=== PATIENT | male | born 1995 | race American Indian/Alaskan Native ===

== ENCOUNTER 2019-12-23 16:32 | Emergency (ER) | payer SELFPAY ==
[2019-12-23] MEDS ORDERED: ETOMIDATE 20 MG/10 ML INJ IV ONE ×2 (16:48→17:10)
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
[2019-12-23] MEDS ORDERED: ONDANSETRON 4 MG/2 ML INJ IV ONE (17:25)
[2019-12-23] MEDS ORDERED: MORPHINE 4 MG/1 ML INJ IV ONE (17:25)
[2019-12-23] MEDS ORDERED: KETOROLAC 30 MG/1 ML INJ IV ONE (17:25)
--- NOTE | 2019-12-23 17:28 | XRay Report ---
RIGHT SHOULDER 2 VIEW(S) 4:54 PM INDICATION / CLINICAL INFORMATION: right shoulder pain COMPARISON: None available. FINDINGS: BONES / JOINT(S): Anterior dislocation of the right humeral head relative to the glenoid. No acute fr acture. No significant arthritis. SOFT TISSUES: No significant abnormality. ADDITIONAL FINDINGS: None. IMPRESSION: 1. Anterior shoulder dislocation. Signer Name: Derrick De La Rosa MD Signed: 12/23/2019 5:24 PM Workstation Name: [id number]
--- NOTE | 2019-12-23 17:57 | XRay Report ---
RIGHT SHOULDER 2 VIEW(S) 5:24 PM INDICATION / CLINICAL INFORMATION: post reduction x-ray COMPARISON: 4:54 PM FINDINGS: BONES / JOINT(S): Interval successful reduction of right shoulder anterior dislocation. Mild impactio n deformity in the posterolateral aspect of the humeral head. No displaced fracture. No significant a rthritis. SOFT TISSUES: No significant abnormality. ADDITIONAL FINDINGS: None. Signer Name: Derrick De La Rosa MD Signed: 12/23/2019 5:53 PM Workstation Name: [id number]
[2019-12-25 12:47] VITALS: BP 105/61
== END 2019-12-23 18:54 | disposition home or self-care (01) ==
LOC: ED 16:32
DX: M24.411 Recurrent dislocation, right shoulder (principal); Z87.81 Personal history of (healed) traumatic fracture; Z79.1 Long term (current) use of non-steroidal anti-inflammatories (NSAID)
CPT/HCPCS: 23650; 73030; 96374; 96375; 99284; J1885; J2270; J2405

== ENCOUNTER 2020-02-19 09:06 | Emergency (ER) | payer SELFPAY ==
[2020-02-19] MEDS ORDERED: KETAMINE 500 MG/5 ML VIAL MDV IV ONE (09:43)
[2020-02-19] MEDS ORDERED: propofoL 200 MG/20 ML VIAL IV ONE (09:43)
[2020-02-19] MEDS ORDERED: SODIUM CHLORIDE 0.9% 1000 ML 1,000 ML IV ONE (09:43)
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
--- NOTE | 2020-02-19 09:59 | XRay Report ---
RIGHT SHOULDER 3 VIEW(S) INDICATION / CLINICAL INFORMATION: shoulder dislocation COMPARISON: Right shoulder x-ray 01/06/2020 FINDINGS: BONES / JOINT(S): The humeral head is dislocated anteroinferiorly with respect to the glenoid. Postre duction x-ray recommended. Signer Name: Danny Olmos MD Signed: 02/19/2020 9:55 AM Workstation Name: [id number]
[2020-02-19 10:36] VITALS: BP 132/90
--- NOTE | 2020-02-19 10:53 | XRay Report ---
RIGHT SHOULDER ONE VIEW INDICATION: dislocation reduction. COMPARISON: None. IMPRESSION: The anterior inferior dislocation at the right glenohumeral joint has been reduced and n ow appears anatomic in alignment. No obvious bony abnormality. Signer Name: Albert Mack Jr, MD Signed: 02/19/2020 10:48 AM Workstation Name: [id number]
== END 2020-02-19 11:31 | disposition home or self-care (01) ==
LOC: ED 09:06
DX: S43.084A Other dislocation of right shoulder joint, initial encounter (principal); Z79.1 Long term (current) use of non-steroidal anti-inflammatories (NSAID); X58.XXXA Exposure to other specified factors, initial encounter; Y93.89 Activity, other specified; Y92.89 Other specified places as the place of occurrence of the external cause; Y99.8 Other external cause status
CPT/HCPCS: 23655; 73020; 73030; 99284; J2704; J7030; 96374; 96375

== ENCOUNTER 2020-05-22 19:31 | Emergency (ER) | payer SELFPAY ==
[2020-05-22] MEDS ORDERED: ONDANSETRON 4 MG/2 ML INJ IV ONE (19:54)
[2020-05-22] MEDS ORDERED: ETOMIDATE 20 MG/10 ML INJ IV ONE ×2 (19:54→21:00)
[2020-05-22] MEDS ORDERED: HYDROmorphone 1 MG/1 ML INJ IV ONE (19:54)
[2020-05-22] MEDS ORDERED: KETOROLAC 30 MG/1 ML INJ IV ONE (19:59)
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
--- NOTE | 2020-05-22 20:44 | XRay Report ---
Right shoulder 2 views INDICATION: Right shoulder pain IMPRESSION: Severe anterior-inferior dislocation of the right humeral head from the glenoid. Signer Name: Arnol Rivera MD Signed: 05/22/2020 8:39 PM Workstation Name: [id number]
--- NOTE | 2020-05-22 21:29 | XRay Report ---
RIGHT SHOULDER 1 VIEW(S) INDICATION / CLINICAL INFORMATION: post reduction film COMPARISON: Radiograph from same day. FINDINGS: Single view of the right shoulder demonstrates satisfactory glenohumeral alignment post red uction. No definite fractures identified. Signer Name: Camron Goldman MD Signed: 05/22/2020 9:24 PM Workstation Name: [id number]
[2020-05-22 22:14] VITALS: BP 120/78
== END 2020-05-22 22:00 | disposition home or self-care (01) ==
LOC: ED 19:31
DX: M24.411 Recurrent dislocation, right shoulder (principal); Z79.1 Long term (current) use of non-steroidal anti-inflammatories (NSAID); W06.XXXA Fall from bed, initial encounter; Y93.89 Activity, other specified; Y92.89 Other specified places as the place of occurrence of the external cause; Y99.8 Other external cause status
CPT/HCPCS: 23650; 73020; 73030; 96374; 96375; 99284; J1170; J1885; J2405